=== PATIENT | female | born 1950 | race Caucasian/White ===

== ENCOUNTER 2018-09-21 12:30 | Day surgery (SDC) | payer OTHER, SELFPAY | END 2018-09-21 23:59 | disposition home or self-care (01) | LOC: WOUND 12:30 | DX: L98.492 Non-pressure chronic ulcer of skin of other sites with fat layer exposed (principal); B96.89 Other specified bacterial agents as the cause of diseases classified elsewhere; D64.9 Anemia, unspecified; M19.90 Unspecified osteoarthritis, unspecified site; F41.9 Anxiety disorder, unspecified; F32.9 Major depressive disorder, single episode, unspecified; Z79.899 Other long term (current) drug therapy | CPT/HCPCS: G0463 ==

== ENCOUNTER 2018-09-28 14:23 | Day surgery (SDC) | payer OTHER, SELFPAY | END 2018-09-28 23:38 | disposition home or self-care (01) | LOC: WOUND 14:23 | DX: T81.89XA Other complications of procedures, not elsewhere classified, initial encounter (principal); L98.492 Non-pressure chronic ulcer of skin of other sites with fat layer exposed; M19.90 Unspecified osteoarthritis, unspecified site; D89.1 Cryoglobulinemia; F32.9 Major depressive disorder, single episode, unspecified; F41.9 Anxiety disorder, unspecified; Z87.2 Personal history of diseases of the skin and subcutaneous tissue ==

== ENCOUNTER 2018-10-06 10:55 | Day surgery (SDC) | payer OTHER, SELFPAY | END 2018-10-06 23:10 | disposition home or self-care (01) | LOC: WOUND 10:55 | DX: T81.89XA Other complications of procedures, not elsewhere classified, initial encounter (principal); L98.492 Non-pressure chronic ulcer of skin of other sites with fat layer exposed; F32.9 Major depressive disorder, single episode, unspecified; F41.9 Anxiety disorder, unspecified; D64.9 Anemia, unspecified ==

== ENCOUNTER 2018-10-13 11:00 | Day surgery (SDC) | payer OTHER, SELFPAY | END 2018-10-13 23:03 | disposition home or self-care (01) | LOC: WOUND 11:00 | DX: T81.49XA Infection following a procedure, other surgical site, initial encounter (principal); L98.492 Non-pressure chronic ulcer of skin of other sites with fat layer exposed; D64.9 Anemia, unspecified; Z87.2 Personal history of diseases of the skin and subcutaneous tissue ==

== ENCOUNTER 2018-10-27 00:30 | Day surgery (SDC) | payer OTHER, SELFPAY | END 2018-10-27 23:24 | disposition home or self-care (01) | LOC: WOUND 00:30 | DX: T81.49XA Infection following a procedure, other surgical site, initial encounter (principal); L98.492 Non-pressure chronic ulcer of skin of other sites with fat layer exposed; M19.90 Unspecified osteoarthritis, unspecified site; Z87.2 Personal history of diseases of the skin and subcutaneous tissue | CPT/HCPCS: 87070; 87075; 87077; 87186; 87205 ==

== ENCOUNTER 2018-11-03 01:19 | Day surgery (SDC) | payer OTHER, SELFPAY | END 2018-11-03 22:49 | disposition home or self-care (01) | LOC: WOUND 01:19 | DX: T81.49XA Infection following a procedure, other surgical site, initial encounter (principal); L98.492 Non-pressure chronic ulcer of skin of other sites with fat layer exposed; M19.90 Unspecified osteoarthritis, unspecified site; Z87.2 Personal history of diseases of the skin and subcutaneous tissue ==

== ENCOUNTER 2018-11-10 11:00 | Day surgery (SDC) | payer OTHER, SELFPAY | END 2018-11-10 23:08 | disposition home or self-care (01) | LOC: WOUND 11:00 | DX: Z09 Encounter for follow-up examination after completed treatment for conditions other than malignant neoplasm (principal); I10 Essential (primary) hypertension; Z87.2 Personal history of diseases of the skin and subcutaneous tissue | CPT/HCPCS: G0463 ==

== ENCOUNTER 2018-11-17 11:00 | Day surgery (SDC) | payer OTHER | END 2018-11-17 22:48 | disposition home or self-care (01) | LOC: WOUND 11:00 | DX: T81.89XA Other complications of procedures, not elsewhere classified, initial encounter (principal); F32.9 Major depressive disorder, single episode, unspecified; F41.9 Anxiety disorder, unspecified | CPT/HCPCS: G0463 ==

== ENCOUNTER 2018-11-24 11:23 | Day surgery (SDC) | payer OTHER | END 2018-11-25 00:06 | disposition home or self-care (01) | LOC: WOUND 11:23 | DX: T81.89XA Other complications of procedures, not elsewhere classified, initial encounter (principal); L98.492 Non-pressure chronic ulcer of skin of other sites with fat layer exposed; Z87.2 Personal history of diseases of the skin and subcutaneous tissue ==

== ENCOUNTER 2018-12-01 11:00 | Day surgery (SDC) | payer OTHER, SELFPAY | END 2018-12-01 23:38 | disposition home or self-care (01) | LOC: WOUND 11:00 | DX: T81.89XA Other complications of procedures, not elsewhere classified, initial encounter (principal); Z87.2 Personal history of diseases of the skin and subcutaneous tissue | CPT/HCPCS: G0463 ==

== ENCOUNTER 2018-12-08 11:09 | Day surgery (SDC) | payer OTHER, SELFPAY | END 2018-12-08 23:40 | disposition home or self-care (01) | LOC: WOUND 11:09 | DX: T81.89XA Other complications of procedures, not elsewhere classified, initial encounter (principal); L98.492 Non-pressure chronic ulcer of skin of other sites with fat layer exposed; F32.9 Major depressive disorder, single episode, unspecified; F41.9 Anxiety disorder, unspecified; Z87.2 Personal history of diseases of the skin and subcutaneous tissue | CPT/HCPCS: G0463 ==

== ENCOUNTER 2018-12-22 11:12 | Day surgery (SDC) | payer OTHER, SELFPAY | END 2018-12-23 00:17 | disposition home or self-care (01) | LOC: WOUND 11:12 | DX: L98.492 Non-pressure chronic ulcer of skin of other sites with fat layer exposed (principal); Z87.2 Personal history of diseases of the skin and subcutaneous tissue; F32.9 Major depressive disorder, single episode, unspecified; F41.9 Anxiety disorder, unspecified | CPT/HCPCS: G0463 ==

== ENCOUNTER → 2021-12-17 | Outpatient (CLI) | payer OTHER | END | disposition home or self-care (01) | LOC: LAB SHORT 14:54 → PLD 14:54 | DX: L30.8 Other specified dermatitis (principal) | CPT/HCPCS: 88305; 88312 ==

== ENCOUNTER → 2022-02-02 | Outpatient (CLI) | payer OTHER | END | disposition home or self-care (01) | LOC: LAB SHORT 14:58 → LAB 14:58 | DX: L08.89 Other specified local infections of the skin and subcutaneous tissue (principal) | CPT/HCPCS: 88305; 88312 ==